=== PATIENT | female | born 1975 | race Caucasian/White ===

== ENCOUNTER 2021-07-26 09:41 | Emergency (ER) | payer SELFPAY ==
[~2021-07-26] VITALS: Ht 152.4 cm; Wt 83.0 kg
[2021-07-26 09:44] VITALS: BP 93/44
[2021-07-26] MEDS ORDERED: ACETAMINOPHEN 325MG TABLET PO STA (10:36)
[2021-07-26] MEDS ORDERED: SODIUM CHLORIDE 0.9% 1,000 ML IV ONE (10:45)
[2021-07-26 11:08] LABS: BASOPHILS % 1.6 % (0.0-2.0); EOSINOPHILS % 0.5 % (0.0-5.0); HEMATOCRIT. 26.2 % (36.0-48.0); HEMOGLOBIN. 8.4 g/dL (12.0-16.0); MEAN CORPUSCULAR HEMOGLOBIN 20.4 pg (28.0-32.0); MEAN CORPUSCULAR VOLUME 63.7 fL (81.0-99.0); MEAN PLATELET VOLUME 9.1 fl (7.4-10.4); MONOCYTES % 6.3 % (2.0-8.0); NEUTROPHILS % 72.6 % (40.0-76.0); PLATELET 229 x1000/uL (130-400); RED BLOOD CELL COUNT 4.11 mill/uL (4.2-5.4); RED CELL DISTRIBUTION WIDTH 19.5 % (11.6-14.6)
[2021-07-26 11:15] LABS: CHLORIDE 112 mEq/L (98-107)
[2021-07-26 11:20] LABS: HCG SCREEN NEGATIVE
[2021-07-26 11:44] LABS: PLATELET ESTIMATE NORMAL
[2021-07-26] MEDS ORDERED: IBUP-2028 MT (12:54)
== END 2021-07-26 13:09 | disposition home or self-care (01) ==
LOC: ER 09:57
DX: N93.9 Abnormal uterine and vaginal bleeding, unspecified (principal); D26.0 Other benign neoplasm of cervix uteri; Z79.899 Other long term (current) drug therapy; Z90.49 Acquired absence of other specified parts of digestive tract
CPT/HCPCS: 36415; 76830; 76856; 80053; 84703; 85025; 86850; 86900; 86901; 99284; J7030